=== PATIENT | male | born 1955 ===

== ENCOUNTER 2024-12-16 19:00 | Observation (INO) ==
[~2024-12-16 19:00] MED LIST: ALBUTEROL SULFATE 2.5 MG/3 ML NEBULIZER NEB PRN; ONDANSETRON 4 MG/2 ML VIAL IV PRN
[2024-12-16] MEDS: SENNOSIDES 1 TABLET PO SCH (23:00)
[2024-12-16] MEDS: DOCUSATE SODIUM 100 MG CAPSULE PO SCH (23:00)
[2024-12-16] MEDS: 0.9 % SODIUM CHLORIDE 1,000 ML IV SCH (23:34)
[2024-12-16] MEDS: 0.9 % SODIUM CHLORIDE 10 ML SYRINGE IV SCH (23:34)
[2024-12-17] MEDS: ACETAMINOPHEN 500 MG TABLET PO ONE ×2 (00:24→02:37)
[2024-12-17] MEDS: PIPERACILLIN SODIUM/TAZOBACTAM 3.375 GM in DEXTROSE 5% IN WATER 100 ML IV SCH (00:25)
[2024-12-17] MEDS: MELATONIN 3 MG TABLET PO PRN (00:40)
[2024-12-17] MEDS: MELATONIN 3 MG TABLET PO ONE ×2 (02:38→03:20)
[2024-12-17 06:24] LABS: Basophils # (Auto) 0.01 K/mcL (0.00-0.30); Basophils % (Auto) 0.1 % (0.0-2.0); Eosinophils # (Auto) 0.28 K/mcL (0.00-0.70); Eosinophils % (Auto) 2.7 % (0.0-7.0); Hematocrit 39.8 % (40.1-51.0); Hemoglobin 13.7 g/dL (13.7-17.5); Lymphocytes # (Auto) 1.79 K/mcL (1.50-4.80); Lymphocytes % (Auto) 17.1 % (15.5-49.0); Mean Corpuscular HGB Conc 34.4 g/dL (31.0-36.0); Monocytes # (Auto) 1.10 K/mcL (0.10-0.90); Monocytes % (Auto) 10.5 % (1.0-12.0); Neutrophils % (Auto) 69.3 % (38.0-78.0); Platelet Count 272 K/mcL (140-440); RBC 4.50 M/mcL (4.63-6.08); WBC 10.5 K/mcL (4.5-11.0)
[2024-12-17 06:37] LABS: ALT/SGPT 16 U/L (<40); AST/SGOT 22 U/L (<40); Albumin 3.2 gm/dL (3.2-5.2); Albumin/Globulin Ratio 1.2 (1.0-2.3); Alkaline Phosphatase 81 U/L (39-117); Anion Gap 8.0 (8.0-16.0); Bilirubin,Total 1.6 mg/dL (0.1-1.0); Blood Urea Nitrogen 11 mg/dL (8-23); Calcium 8.3 mg/dL (8.6-10.4); Carbon Dioxide 22 mmol/L (22-30); Chloride 108 mmol/L (96-108); Globulin 2.7 gm/dL (2.2-3.7); Glucose 101 mg/dL (70-105); Potassium 3.6 mmol/L (3.3-5.1); Sodium 138 mmol/L (133-145)
[2024-12-17] MEDS ORDERED: ONDANSETRON 4 MG/2 ML VIAL ONE (07:49)
[2024-12-17] MEDS ORDERED: ROCURONIUM 10 MG/ML ML IV ONE (07:49)
[2024-12-17] MEDS ORDERED: PROPOFOL 200 MG/20 ML VIAL IV ONE (07:49)
[2024-12-17] MEDS ORDERED: DEXAMETHASONE 10 MG/ML VIAL ONE (07:49)
[2024-12-17] MEDS ORDERED: fentaNYL 100 MCG/2 ML VIAL ONE ×2 (07:49→08:50)
[2024-12-17] MEDS ORDERED: GLYCOPYRROLATE 0.2 MG/ML VIAL IV ONE (07:49)
[2024-12-17] MEDS ORDERED: FAMOTIDINE/PF 20 MG/2 ML VIAL IV ONE (07:50)
[2024-12-17] MEDS ORDERED: MAGNESIUM SULFATE 2 GM/50 ML BAG IV ONE (07:50)
[2024-12-17] MEDS ORDERED: SUCCINYLCHOLINE 200 MG/10 ML VIAL IV ONE (07:55)
[2024-12-17] MEDS ORDERED: PHENYLephrine 1 MG/10 ML SYRINGE (ANEST) ONE (08:09)
[2024-12-17] MEDS ORDERED: SUGAMMADEX SODIUM 200 MG/2 ML VIAL IV ONE (08:12)
[2024-12-17] MEDS ORDERED: KETOROLAC 30 MG/ML VIAL ONE (08:12)
[2024-12-17] MEDS ORDERED: IPRATROPIUM/ALBUTEROL 3 ML AMPUL.NEB NEB PRN (08:19)
[2024-12-17] MEDS ORDERED: HYDROmorphone 0.5 MG/0.5 ML SYRINGE IV PRN (08:19)
[2024-12-17] MEDS ORDERED: ONDANSETRON 4 MG/2 ML VIAL IV PRN (08:19)
[2024-12-17] MEDS ORDERED: LACTATED RINGERS 250 ML IV PRN (08:19)
[2024-12-17] MEDS ORDERED: NALOXONE HCL 0.4 MG/ML VIAL IV PRN (08:19)
[2024-12-17] MEDS ORDERED: BENZOCAINE/MENTHOL 1 LOZENGE PO PRN (08:19)
[2024-12-17] MEDS ORDERED: METHOCARBAMOL 1,000 MG/10 ML VIAL IV PRN (08:19)
[2024-12-17] MEDS ORDERED: fentaNYL 100 MCG/2 ML VIAL IV PRN (08:20)
[2024-12-17] MEDS: ACETAMINOPHEN 1,000 MG/100 ML BAG IV ONE (09:05)
[2024-12-17] MEDS: LACTATED RINGERS 1,000 ML IV SCH (09:41)
[2024-12-17] MEDS ORDERED: ACETAMINOPHEN 650 MG/65 ML BAG IV PRN (15:00)
== END 2024-12-17 12:07 | disposition home or self-care (01) ==
LOC: MEDSUR
PROVIDERS: ADMIT Surgery; ATTEND Surgery